=== PATIENT | female | born 1955 | race Caucasian/White ===

== ENCOUNTER → 2020-08-10 14:10 | Outpatient (CLI) | payer MEDICARE, SELFPAY ==
[2020-08-10 14:19] LABS: Microscopic, Urine URINE MICROSCOPIC (MICROSCOPIC)
[2020-08-10 15:54] LABS: Appearance,Urine CLEAR (Clear); Bilirubin,Urine Negative (Negative); Blood, Urine Negative (Negative); Color,Urine YELLOW (Yellow); Glucose,Urine (UA) 3+ (Negative); Ketones,Urine Negative (Negative); Leukocyte Esterase,Urine Negative (Negative); Nitrate,Urine Negative (Negative); PH,Urine 5.5 (5.0-8.5); Protein,Urine TRACE (Negative); Specific Gravity, Urine 1.025 (1.005-1.030); Urobilinogen,Urine 0.2 EU/dl (0.2)
[2020-08-10 16:00] LABS: Amorphous Sediment,Urine Trace /lpf; RBC,Urine Occasional #/hpf (0-3)
[2020-08-10 16:05] LABS: Creatinine,Urine Random 69 mg/dL (Not Estab.)
[2020-08-10 16:58] LABS: Albumin Level 4.9 g/dl (3.5-5.0); Anion Gap 15.1 mEq/L (5-15); Blood Urea Nitrogen 28 mg/dl (7-17); Calcium 10.1 mg/dl (8.4-10.2); Carbon Dioxide 23 mmol/L (22.0-30.0); Chloride 104 mmol/L (98-107); Estimated Glomerular Filt Rate 38 ml/min (>60); GFR (African American) 45 ML/MIN (>60); Glucose 223 mg/dl (74-100); Phosphorous 3.4 mg/dl (2.5-4.5); Potassium 4.1 mmoL/L (3.5-5.1); Sodium 138 mmol/L (136-145)
== END ==
PROVIDERS: Visit Provider Nurse Practitioner
DX: N18.30 Chronic kidney disease, stage 3 unspecified (principal)
CPT/HCPCS: 36415; 80069; 81001; 82570; 84155

== ENCOUNTER 2020-10-18 08:34 | Observation (INO) | payer MEDICARE, SELFPAY ==
[2020-10-18] VITALS (9 sets, daily range): BP systolic 140–185; BP diastolic 66–109; PULSE 82–112; RESP 18–20; TEMP 36.8–37.5; O2SAT 95–100; BMI 31.6
--- NOTE | 2020-10-18 08:47 | HMH.EDLOEX ---
ED Disposition Clinical Impression: Diabetic foot infection Disposition: Admitted As Inpatient Condition on Discharge: Good Referrals: Shivani Nieves APRN [Primary Care Provider] - Time of Disposition: 11:01 - Critical Care Critical Care Time: No Attestation: On 10/18/20, the high probability of a clinically significant, sudden or life threatening deterioration of the following system(s) required my full and direct attention, intervention and personal management. The time I documented below is in addition to time spent performing reported procedures but includes the following listed in this critical care notation. Medical Decision Making - Medical Records Medical records reviewed: Yes: I reviewed the patient's medical records. - Daniel Inquiry Pt receiving controlled substance: No Vital Signs: 10/18/20 08:36 10/18/20 09:48 10/18/20 10:26 Temperature 98.3 F Temperature Source Oral Pulse Rate [Right Brachial] 112 H 96 H 95 H Respiratory Rate 20 Blood Pressure [Right Arm] 170/78 H 183/66 H 182/73 H Blood Pressure Mean [Right Arm] 108 105 109 Blood Pressure Source [Right Arm] Automatic Cuff Automatic Cuff Automatic Cuff Blood Pressure Position [Right Arm] Sitting Sitting Sitting 02 Sat by Pulse Oximetry 96 98 100 Oxygen Delivery Method Room Air Room Air Room Air - Lab Data Lab Results 10/18/20 09:48: WBC 9.9, RBC 5.19, Hgb 13.8, Hct 42.9, MCV 82.7, MCH 26.6 L, MCHC 32.2, RDW 14.7, Plt Count 269, MPV 7.2 L, Neut % (Auto) 83.6 H, Lymph % (Auto) 9.4 L, [place] % (Auto) 6.2, Eos % (Auto) 0.3, Baso % (Auto) 0.5, Neut # (Auto) 8.2 H, Lymph # (Auto) 0.9, [place] # (Auto) 0.6, Eos # (Auto) 0.0, Baso # (Auto) 0.1 10/18/20 09:48: Sodium 138, Potassium 4.3, Chloride 101, Carbon Dioxide 26, Anion Gap 15.3 H, BUN 25 H, Creatinine 1.30 H, Estimated Creat Clear 54, Estimated GFR 41 L, Est GFR ( Amer) 49 L, Glucose 267 H, Calcium 10.4 H, Total Bilirubin 0.6, AST 25, ALT 17, Alkaline Phosphatase 207 H, Total Protein 9.0 H, Albumin 4.8, Globulin 4.2 H, Albumin/Globulin Ratio 1.1 10/18/20 09:48: Uric Acid 6.7 H Result diagrams: 10/18/20 09:48 02 09:48 Orders (Tests/Meds): ORDERS Category Date Time Status Covid-19 Nasal PCR ([facility]) Routine Lab 10/18/20 09:26 Received Lactic Acid Stat Lab 10/18/20 09:48 Received Blood Culture Stat Micro 10/18/20 09:48 Received Medical Decision Narrative: 65yo F with history of poorly controlled diabetes evaluated for right foot and ankle pain. Differential diagnosis includes was not limited to: Musculoskeletal injury, gout, pseudogout, joint infection, diabetic foot infection, DVT, vascular compromise. CBC, CMP, blood cultures, uric acid will be collected. Ankle x-ray being completed at this time. At this time, most likely etiology would be infection secondary to the skin breakdown the patient's heel. This is complicated by her diabetes. With the patient already being on p.o. antibiotics outpatient, this would be a failure of outpatient management as I suspect the patient will need to be admitted. Furthermore, the patient is unable to bear any weight whatsoever and lives alone. This puts her at a greater risk for further injury. CBC, CMP are unremarkable except for glucose of 267. Uric acid is mildly elevated at 6.7. Given the patient's recent hospitalization, her diabetes, her foot exam and her failed outpatient management, the patient has been admitted this time. Dr. Cueva has graciously excepted care of the patient this time. We will start the patient on vancomycin and cefepime for MRSA and Pseudomonas. Lower Extremity Injury HPI - General Stated Complaint: right ankle pain, no accident Time Seen by Provider: 10/18/20 08:48 Mode of Arrival: Wheelchair Source of Information: Patient Limitations: No Limitations - History of Present Illness HPI Narrative: 65yo F with past medical history significant for poorly controlled diabetes, CKD, CAD presents t
--- NOTE | 2020-10-18 09:13 | XR_ITS ---
PROCEDURE: XR ANKLE RT 2V CLINICAL INDICATION: pain Right ankle pain and swelling COMPARISON: No exams were available for comparison FINDINGS: No fracture or dislocation. No lytic or blastic change. The joint space is well preserved. There is mild soft tissue swelling at the medial malleolar region. No soft tissue gas or radiopaque foreign body IMPRESSION: Soft tissue swelling otherwise negative Dictated by: Nir Smith MD 10/18/2020 09:42 Nir Smith MD in [place] 10/18/2020 09:42
[2020-10-18 10:20] LABS: Basophils # 0.1 K/mm3 (0-0.2); Basophils % 0.5 % (0.1-2.0); Eosinophils % 0.3 % (0.1-12.0); Hematocrit 42.9 % (37.0-47.0); Hemoglobin 13.8 g/dL (12.2-16.2); Lymphocytes # 0.9 K/mm3 (0.7-4.5); Lymphocytes % 9.4 % (10-50); Mean Corpuscular HGB Conc 32.2 g/dL (31.8-35.4); Mean Corpuscular Hemoglobin 26.6 pg (27.0-31.2); Mean Corpuscular Volume 82.7 fl (81-99); Mean Platelet Volume 7.2 fl (7.4-10.4); Monocytes # 0.6 K/mm3 (0.1-1.0); Monocytes % 6.2 % (1.7-9.3); Neutrophils # 8.2 K/mm3 (1.8-7.8); Neutrophils % 83.6 % (37.0-80.0); Platelet Count 269 K/mm3 (142-424); Red Blood Count 5.19 M/mm3 (4.20-5.40); Red Cell Distribution Width 14.7 % (11.5-17.5); White Blood Count 9.9 K/mm3 (4.8-10.8)
[2020-10-18 10:25] LABS: Alanine Aminotransferase 17 U/L (12-78); Albumin Level 4.8 g/dl (3.5-5.0); Albumin/Globulin Ratio 1.1 (1.1-1.8); Alkaline Phosphatase 207 U/L (38-126); Anion Gap 15.3 mEq/L (5-15); Aspartate Amino Transferase 25 U/L (14-36); Bilirubin,Total 0.6 mg/dl (0.2-1.3); Blood Urea Nitrogen 25 mg/dl (7-17); Calcium 10.4 mg/dl (8.4-10.2); Carbon Dioxide 26 mmol/L (22.0-30.0); Chloride 101 mmol/L (98-107); Creatinine Clearance Estimated 54 mL/min (50-200); Estimated Glomerular Filt Rate 41 ml/min (>60); GFR (African American) 49 ML/MIN (>60); Globulin 4.2 g/dL (1.3-3.2); Glucose 267 mg/dl (74-100); Potassium 4.3 mmoL/L (3.5-5.1); Sodium 138 mmol/L (136-145)
[2020-10-18 10:26] LABS: Uric Acid 6.7 mg/dl (2.5-6.2)
--- NOTE | 2020-10-18 10:39 | PC.NURSE ---
calling dr zuñiga who is on for service
--- NOTE | 2020-10-18 10:43 | PC.NURSE ---
FARNAZ TRAN speaking with Dr chand
--- NOTE | 2020-10-18 10:54 | PC.NURSE ---
DR VALIENTE AGREED TO ADMISSION
[2020-10-18 10:59] LABS: Lactic Acid 0.9 mmol/L (0.7-2.1)
--- NOTE | 2020-10-18 11:16 | P.CONPHA_ITS ---
- Pharmacy Consult Date: 10/18/20 Time: 11:16 Referring provider: DR. CORCORAN Reason for Consult:: VANCOMYCIN DOSING Allergies and ADEs:: Allergies Allergy/AdvReac Type Severity Reaction Status Date / Time No Known Allergies Allergy Verified 10/18/20 09:03 Home Medications:: Home Medications Medication Instructions Recorded Confirmed Type Clopidogrel Bisulfate [Clopidogrel 75 mg PO DAILY 10/18/20 10/18/20 History 75mg Tab] Empagliflozin [Jardiance] 10 mg PO DAILY 10/18/20 10/18/20 History Insulin Detemir [Levemir 100 units SQ NEEDED PRN 10/18/20 10/18/20 History 100units/mL 3mL flexpen] Insulin Lispro [Insulin Lispro 100 unit SQ NEEDED PRN 10/18/20 10/18/20 History Kwikpen U-100] Losartan Potassium [Cozaar 50mg 50 mg PO DAILY 10/18/20 10/18/20 History Tablets] Metoprolol Succinate [Metoprolol 25 mg PO DAILY 10/18/20 10/18/20 History Succinate 25mg Tablet*] Rosuvastatin Calcium 10 mg PO DAILY 10/18/20 10/18/20 History Sertraline HCl [Zoloft] 100 mg PO DAILY 10/18/20 10/18/20 History Topiramate 100 mg PO DAILY 10/18/20 10/18/20 History cloNIDine HCL [cloNIDine 0.2mg 0.2 mg PO DAILY 10/18/20 10/18/20 History Tablet] Height: 1.6 m Weight: 81.193 kg Laboratory Results:: Laboratory Results - last 24 hr 10/18/20 09:48: WBC 9.9, RBC 5.19, Hgb 13.8, Hct 42.9, MCV 82.7, MCH 26.6 L, MCHC 32.2, RDW 14.7, Plt Count 269, MPV 7.2 L, Neut % (Auto) 83.6 H, Lymph % (Auto) 9.4 L, [place] % (Auto) 6.2, Eos % (Auto) 0.3, Baso % (Auto) 0.5, Neut # (Auto) 8.2 H, Lymph # (Auto) 0.9, [place] # (Auto) 0.6, Eos # (Auto) 0.0, Baso # (Auto) 0.1 10/18/20 09:48: Sodium 138, Potassium 4.3, Chloride 101, Carbon Dioxide 26, Anion Gap 15.3 H, BUN 25 H, Creatinine 1.30 H, Estimated Creat Clear 54, Estimated GFR 41 L, Est GFR ( Amer) 49 L, Glucose 267 H, Calcium 10.4 H, Total Bilirubin 0.6, AST 25, ALT 17, Alkaline Phosphatase 207 H, Total Protein 9.0 H, Albumin 4.8, Globulin 4.2 H, Albumin/Globulin Ratio 1.1 10/18/20 09:48: Uric Acid 6.7 H 10/18/20 09:48: Lactate 0.9 Medical History: Reports:: Atherosclerotic Heart Disease, Diabetes Mellitus Type 2, Renal Disease Assessment and Plan - Assessment and plan all Dx Assessment and Plan for all problems:: Age: 65 yo Serum creatinine: 1.3 mg/dL Height: 63.0 Inches Weight (kg): 81.2 Assessment: IBW (kg): 52.40 Dosing wt(kg): 81.2 Estimated Creatinine clearance (ml/min): 34.7 CRCL method: Cockcroft and Gault using ibw(default). Drug selected: Vancomycin Loading dose (mg): 0 Vd (liters): 65.0 (factor used: 0.8 L/kg) Ney (hr-1): 0.033 Half life (hrs): 21.00 Recommended dose: 1250 mg Interval: 24 hrs Infusion time (hrs): 2.0 Predicted peak (mcg/mL): 34.0 Predicted trough (mcg/mL): 16.45 Total body weight is being used for vancomycin dosing. Recommendations: Recommend starting with Vancomycin 1500 mg x1 dose, then give Vancomycin 1250 mg q 24 hrs with an expected Cpeak of 34.0 mcg/ml and an expected Ctrough of 16.45 mcg/ml
--- NOTE | 2020-10-18 11:41 | PC.NURSE ---
nasal swab will be approx 92 mins
--- NOTE | 2020-10-18 11:51 | HMH.PHAINT ---
COMPLETED HOME MEDICATION LIST USING LIST FROM [facility] IN [facility]
--- NOTE | 2020-10-18 12:01 | HMH.HP ---
*Admission Date: 10/18/20 <Faby Robins - 10/18/20 12:21> *Chief complaint: foot pain <Faby Robins 10/18/20 12:21> *History of present illness: Ms. 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 She was recently admitted at [facility] last week for urinary tract infection with sepsis and acute kidney injury. Her glucose was over 600. She states she was started on IV antibiotics and was discharged from the hospital on Friday with prescriptions for Augmentin and doxycycline. Her white blood cell count had improved by the time of discharge and she was feeling much better. She states on Friday she began having some pain in her right ankle. By Friday there was pain and swelling. This morning she woke up and there was erythema along the ankle and the top of the foot. She states it was hot and very painful and she was unable to walk and had to crawl around her house to get to the bathroom. She therefore presented to the emergency room. Her only other complaint is of some nausea. She was evaluated in the emergency room and felt to have a cellulitis. She was started on vancomycin and cefepime to cover for MRSA and Pseudomonas. Of note her uric acid was elevated at 6.7. Podiatry was also consulted. <Faby Robins 10/18/20 16:26> [facility] History I have reviewed the patient's past medical history: Yes <Faby Robins 10/18/20 12:21> Medical History: Reports:: Atherosclerotic Heart Disease, Depression, Diabetes Mellitus Type 2, Hypertension, Renal Disease <Faby Robins 10/18/20 16:26> *Have you ever received a pneumonia vaccine?: No <Faby Robins 10/18/20 12:21> *Have you received a flu vaccine this season?: No <Faby Robins 10/18/20 12:21> Other Surgeries: Yes: Coronary Stent, Hysterectomy-Total, Other (left arm surgery) <Faby Robins 10/18/20 16:26> - *Social History Smoking Status: Never smoker <Faby Robins 10/18/20 12:21> *Occupational Status:: employed <Faby Robins 10/18/20 16:26> *Travel in the last 8 weeks: None <Faby Robins 10/18/20 16:26> Family Hx:: Coronary Artery Disease, Diabetes, Hypertension, Other (MS, glaucoma) <Faby Robins 10/18/20 16:26> Review of Systems - Constitutional Denies fever(s), Denies weakness <Faby Robins 10/18/20 16:26> - Eyes Denies blurry vision, Denies double vision <Faby Robins 10/18/20 16:26> - ENT Reports sore throat, Denies nasal congestion <Faby Robins 10/18/20 16:26> - *Cardiovascular Denies chest pain, Denies shortness of breath <Faby Robins 10/18/20 16:26> - *Respiratory Denies cough, Denies shortness of breath <Faby Robins 10/18/20 16:26> - *Gastrointestinal Reports nausea, Denies abdominal pain, Denies loose stools, Denies vomiting <Faby Robins 10/18/20 16:26> - *Genitourinary Denies difficulty urinating, Denies painful urination <aFby Robins 10/18/20 16:26> - *Musculoskeletal Reports joint pain (right ankle) <Faby Robins 10/18/20 16:26> - *Neurologic Reports abnormal walking, Denies headache(s), Denies dizziness, Denies weakness <Faby Robins 10/18/20 16:26> Meds Home Medications Medication Instructions Recorded Confirmed Type Clopidogrel Bisulfate [Clopidogrel 75 mg PO DAILY 10/18/20 10/18/20 History 75mg Tab] Empagliflozin [Jardiance] 10 mg PO DAILY 10/18/20 10/18/20 History Insulin Detemir [Levemir 50 units SQ HS 10/18/20 10/18/20 History 100units/mL 3mL flexpen] Insulin Lispro [Insulin Lispro 12 unit SQ TIDWM 10/18/20 10/18/20 History Kwikpen U-100] Losartan Potassium [Cozaar 50mg 50 mg PO DAILY 10/18/20 10/18/20 History Tablets] Metoprolol Tartrate [Lopressor 12.5 mg PO BID 10/18/20 10/18/20 History 25mg tablet] Rosuvastatin Calcium 10 mg PO DAILY 10/18/20 10/18/20 History Semaglutide [Ozempic] 0.5 mg
--- NOTE | 2020-10-18 12:04 | HMH.PHAVTE ---
[facility] Pharmacy VTE Monitoring - Patient Demographics Admission date: 10/18/20 Report Date: 10/18/20 Time: 12:04 Allergies/Adverse Reactions: Patient Allergies No Known Allergies Allergy (Verified 10/18/20 09:03) Height: 1.6 m Weight: 81.193 kg Patient Problems: Current Active Problems Diabetic foot infection (Acute) - VTE Risk Labs: VTE Related Lab Results Hgb 13.8 g/dL (12.2-16.2) 10/18/20 09:48 Hct 42.9 % (37.0-47.0) 10/18/20 09:48 Plt Count 269 K/mm3 (142-424) 10/18/20 09:48 BUN 25 mg/dl (7-17) H 10/18/20 09:48 Creatinine 1.30 mg/dl (0.52-1.04) H 10/18/20 09:48 Estimated Creat Clear 54 mL/min (50-200) 10/18/20 09:48 Clinical Trial Participant: No - Prophylaxis VTE Prophylaxis Ordered?: Yes Types of VTE Prophylaxis: IPCS Knee High, Pharmacological Pharmacologic Type: Heparin
--- NOTE | 2020-10-18 13:31 | PC.NURSE ---
report called to [facility]
--- NOTE | 2020-10-18 13:41 | PC.NURSE ---
patient came from er by wheelchair
--- NOTE | 2020-10-18 15:06 | PC.WOUNDNOTE ---
Wound Location: Length: Width: Depth: Undermining Y/N: Tunneling cm: Granulation %: Slough/necrotic tissue %: Inflammation/swelling Y/N: Pain and/or tenderness Y/N: Exudate: Serosanguinous Sanguinous Serosanguinous Seropurulent Purulent Color: Clear Kandy Cloudy/milky [place] Red Green Yellow Brown Avelar Blue Consistency: Thick Thin Amount: None Scant Small Moderate Large Odor Y/N: RIGHT HEEL
[2020-10-18 16:59] LABS: POC Glucose,Bedside 188 (70-110)
--- NOTE | 2020-10-18 20:24 | HMH.ORTHOCON ---
*Admission Date: 10/18/20 <Agatha Kelsey - 10/18/20 20:41> *Reason for consult:: Diabetic foot wound <Agatha Kelsey - 10/18/20 20:41> *History of present illness: 65-year-old female Ms. Hernandez was resting in bed when we rounded she was newly admitted today for diabetic foot wound. The patient is not a regular patient of ours, in fact she states she does not routinely see any podiatry for her diabetic needs. I discussed with the patient our services and that once established service she can have her feet examined and nails trimmed every 3 months and she also would qualify for a pair of new diabetic shoes every year. Patient seemed impressed with the services and said she would think about it. The area that the patient presents with those on her right lateral heel that appears to be very dry skin on the heel , the skin has cracked and developed a large fissure. It looks like the patient had a couple areas that tried to crack open. But the one she stated that was giving her pain was on the lateral side. The fissure did not have any drainage when compressed. Did not probe very deeply at all. The midfoot and ankles medial and lateral malleolus areas was the place that she complained most of pain was coming from. She does have some erythema and edema to the foot and ankle but does not extend past the ankle at all. I do not believe the fissure is the source of the infection. The patient did have good palpable pedal pulses both DP and PT bilaterally. So I will clean and debride the heel and put a Ioplex dressing in place. <Agatha Kelsey - 10/18/20 21:32> [facility] History I have reviewed the patient's past medical history: Yes <Agatha Kelsey - 10/18/20 20:41> Medical History: Reports:: Atherosclerotic Heart Disease, Coronary Artery Disease, Depression, Diabetes Mellitus Type 2, Hyperlipidemia, Hypertension, Renal Disease Denies:: Cancer, Diabetes Mellitus Type 1, MRSA <Agatha Kelsey - 10/18/20 20:41> *Have you ever received a pneumonia vaccine?: Yes <RamónmaryamAgatha barahona Leticia 10/18/20 20:41> *Have you received a flu vaccine this season?: Yes <LowAgatha L 10/18/20 20:41> Other Surgeries: Yes: Cholecystectomy, Coronary Stent, Hysterectomy-Total, Tubal Ligation, Other (left arm surgery) <Agatha Kelsey 10/18/20 20:41> Amputation: No <Agatha Kelsey 10/18/20 20:41> - *Social History Smoking Status: Never smoker <Agatha Kelsey 10/18/20 20:41> Alcohol Intake: never <Agatha Kelsey 10/18/20 20:41> *Occupational Status:: employed <Agatha Kelsey 10/18/20 20:41> Housing: house <Agatha Kelsey 10/18/20 20:41> Household Members: children <Agatha Kelsey 10/18/20 20:41> *Travel in the last 8 weeks: None <Agatha Kelsey 10/18/20 20:41> - Psychiatric History Pschychiatric History:: Reports:: Depression <Agatha Kelsey 10/18/20 20:41> Family Hx:: Coronary Artery Disease, Diabetes, Hypertension, Other (MS, glaucoma) <Agatha Kelsey 10/18/20 20:41> Review of Systems - Constitutional Reports fever(s), Denies anorexia <Agatha Kelsey 10/18/20 21:32> Comments: Patient's temp was 99.5 today. Denies any N/V/D. <Agatha Kelsey 10/18/20 20:41> - Eyes Denies change in vision <Agatha Kelsey 10/18/20 21:32> - ENT Denies dizziness, Denies difficulty swallowing <Agatha Kelsey 10/18/20 21:32> - *Cardiovascular Reports leg swelling (Mild Right foot and ankle edema; it does not extend any up the leg. ), Denies chest pain <Agatha Kelsey 10/18/20 21:32> - *Respiratory Denies shortness of breath <Agatha Kelsey 10/18/20 21:32> - *Gastrointestinal Denies abdominal pain <Agatha Kelsey 10/18/20 21:32> - *Musculoskeletal Denies abnormal walking <Agatha Kelsey 10/18/20 21:32> - Integumentary/Breasts Reports dry skin, Reports lesions <Agatha Kelsey 10/18/20 21:32> Comments: Patient has dry skin noted to feet and on her Right heel later
[2020-10-18 21:08] LABS: POC Glucose,Bedside 308 (70-110)
[2020-10-19 03:36] VITALS: BP 113/53; PULSE 90; RESP 17; TEMP 36.6; O2SAT 96
[2020-10-19 05:00] VITALS: BMI 32.0
--- NOTE | 2020-10-19 05:13 | PC.NURSE ---
Pt is A&Ox4. Pt continues on RA, lung sounds CTA, no cough noted. Active bowel sounds in all 4 quads, no BM noted thus far this shift. Dressing on rt foot remains CDI. Pt states her foot feels better now. Pt has required no PRN pain meds this shift. No other acute changes or complaints at this time.
[2020-10-19 06:40] LABS: POC Glucose,Bedside 230 (70-110)
[2020-10-19 06:59] LABS: Chloride 104 mmol/L (98-107); Sodium 135 mmol/L (136-145)
[2020-10-19 07:00] LABS: Potassium 4.3 mmoL/L (3.5-5.1)
[2020-10-19 07:02] LABS: Anion Gap 9.3 mEq/L (5-15); Basophils # 0.1 K/mm3 (0-0.2); Basophils % 0.7 % (0.1-2.0); Blood Urea Nitrogen 22 mg/dl (7-17); Carbon Dioxide 26 mmol/L (22.0-30.0); Creatinine Clearance Estimated 58 mL/min (50-200); Eosinophils % 0.2 % (0.1-12.0); Estimated Glomerular Filt Rate 45 ml/min (>60); GFR (African American) 54 ML/MIN (>60); Lymphocytes # 1.1 K/mm3 (0.7-4.5); Lymphocytes % 13.3 % (10-50); Mean Corpuscular HGB Conc 31.9 g/dL (31.8-35.4); Mean Corpuscular Hemoglobin 26.5 pg (27.0-31.2); Mean Corpuscular Volume 83.1 fl (81-99); Mean Platelet Volume 7.6 fl (7.4-10.4); Monocytes # 0.6 K/mm3 (0.1-1.0); Monocytes % 7.3 % (1.7-9.3); Neutrophils # 6.3 K/mm3 (1.8-7.8); Neutrophils % 78.6 % (37.0-80.0); Platelet Count 216 K/mm3 (142-424); Red Blood Count 4.57 M/mm3 (4.20-5.40); Red Cell Distribution Width 14.7 % (11.5-17.5)
[2020-10-19 07:03] LABS: Calcium 9.8 mg/dl (8.4-10.2); Glucose 274 mg/dl (74-100)
[2020-10-19 07:25] LABS: Hemoglobin 12.1 g/dL (12.2-16.2)
[2020-10-19 08:00] VITALS: BP 129/59; PULSE 80; RESP 16; TEMP 36.6; O2SAT 96
--- NOTE | 2020-10-19 08:44 | HMH.ACPN2 ---
<Faby Robins - Last Filed: 10/19/20 08:44> Internal Medicine - PN: Subj *Date: 10/19/20 *Time: 08:44 Interval history: Patient states her foot pain is a little bit better today. She is able to move it more than she could yesterday. 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 She rested better last night and was able to eat this am. Exam Vital signs and Labs for Last 24 Hours: Temp Pulse Resp BP Pulse Ox 97.9 F 80 16 129/59 L 96 10/19/20 08:00 10/19/20 08:00 10/19/20 08:00 10/19/20 08:00 10/19/20 08:00 Laboratory Results - last 24 hr 10/18/20 09:48: WBC 9.9, RBC 5.19, Hgb 13.8, Hct 42.9, MCV 82.7, MCH 26.6 L, MCHC 32.2, RDW 14.7, Plt Count 269, MPV 7.2 L, Neut % (Auto) 83.6 H, Lymph % (Auto) 9.4 L, [place] % (Auto) 6.2, Eos % (Auto) 0.3, Baso % (Auto) 0.5, Neut # (Auto) 8.2 H, Lymph # (Auto) 0.9, [place] # (Auto) 0.6, Eos # (Auto) 0.0, Baso # (Auto) 0.1 10/18/20 09:48: Sodium 138, Potassium 4.3, Chloride 101, Carbon Dioxide 26, Anion Gap 15.3 H, BUN 25 H, Creatinine 1.30 H, Estimated Creat Clear 54, Estimated GFR 41 L, Est GFR ( Amer) 49 L, Glucose 267 H, Calcium 10.4 H, Total Bilirubin 0.6, AST 25, ALT 17, Alkaline Phosphatase 207 H, Total Protein 9.0 H, Albumin 4.8, Globulin 4.2 H, Albumin/Globulin Ratio 1.1 10/18/20 09:48: Uric Acid 6.7 H 10/18/20 09:48: Lactate 0.9 10/18/20 16:47: POC Glucose 188 H 10/18/20 20:56: POC Glucose 308 H* 10/19/20 05:30: WBC 8.0, RBC 4.57, Hgb 12.1 L D, Hct 38.0, MCV 83.1, MCH 26.5 L, MCHC 31.9, RDW 14.7, Plt Count 216, MPV 7.6, Neut % (Auto) 78.6, Lymph % (Auto) 13.3, [place] % (Auto) 7.3, Eos % (Auto) 0.2, Baso % (Auto) 0.7, Neut # (Auto) 6.3, Lymph # (Auto) 1.1, [place] # (Auto) 0.6, Eos # (Auto) 0.0, Baso # (Auto) 0.1 10/19/20 05:30: Sodium 135 L, Potassium 4.3, Chloride 104, Carbon Dioxide 26, Anion Gap 9.3, BUN 22 H, Creatinine 1.20 H, Estimated Creat Clear 58, Estimated GFR 45 L, Est GFR ( Amer) 54 L, Glucose 274 H, Calcium 9.8 10/19/20 06:28: POC Glucose 230 H I & O for Last 24 hours: Intake & Output 10/16/20 10/17/20 10/18/20 10/19/20 11:59 11:59 11:59 11:59 Intake Total 840 / 840 Balance 840 / 840 Weight 179 lb 178 lb 9.191 oz Microbiology Reports for the Last 24 Hours: Microbiology 10/18/20 09:26 Nasopharyngeal Coronavirus COVID-19 PCR - Final - Constitutional no acute distress - *Routine Respiratory Exam Present: CTA bilaterally - *Routine Cardiovascular Exam Present: RRR - *Routine Abdominal Exam Present: soft, normoactive bowel sounds. 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 mobility - *Routine Neurological Exam Present: alert, oriented X3 Assessment and Plan (1) Diabetic foot infection Status: Acute Category: Medical Code(s): E11.628 - Type 2 diabetes mellitus with other skin complications; L08.9 - Local infection of the skin and subcutaneous tissue, unspecified (2) Elevated blood uric acid level Status: Acute Category: Medical Code(s): E79.0 - Hyperuricemia without signs of inflammatory arthritis and tophaceous disease (3) Type 2 diabetes mellitus Status: Chronic Category: Medical Code(s): E11.9 - Type 2 diabetes mellitus without complications (4) Chronic kidney disease (CKD) Status: Chronic Category: Medical Code(s): N18.9 - Chronic kidney disease, unspecified (5) Hypertension Status: Chronic Category: Medical Code(s): I10 - Essential (primary) hypertension (6) Coronary artery disease Status: Chronic Category: Medical Code(s): I25.10 - Atherosclerotic heart disease of [place] coronary artery without angina pectoris (7) Keratosis Start date: 10/18/20 Start time: 16:00 Status: Acute Category: Medical Code(s): L57.0 - Actinic keratosis (8) Lower extremity edema St
--- NOTE | 2020-10-19 09:55 | HMH.ORTHPN ---
Subjective Date: 10/19/20 <Agatha Kelsey - 10/19/20 10:09> Time: 09:55 <Agatha Kelsey - 10/19/20 10:09> Principal diagnosis: Diabetic foot wound <Agatha Kelsey - 10/19/20 10:09> Interval history: Patient resting sitting up in her bed this morning states her pain is much better. More tolerable for us to touch. Mobility is much better edema and erythema has also improved since yesterday. Patient was started on steroids and colchicine for gout and it seems to be helping since symptoms are starting to reside. <Agatha Kelsey - 10/19/20 10:09> PN: Obj Ex Vital signs: Temp Pulse Resp BP Pulse Ox 97.9 F 80 16 129/59 L 96 10/19/20 08:00 10/19/20 08:00 10/19/20 08:00 10/19/20 08:00 10/19/20 08:00 <JellyMacy - 10/19/20 10:37> Temp Pulse Resp BP Pulse Ox 97.9 F 80 16 129/59 L 96 10/19/20 08:00 10/19/20 08:00 10/19/20 08:00 10/19/20 08:00 10/19/20 08:00 <Agatha Kelsey 10/19/20 10:09> - Constitutional no acute distress <Agatha Kelsey 10/19/20 10:09> - Routine HEENT Exam Head: Present: normocephalic <Agatha Kelsey 10/19/20 10:09> Eye: Present: PERRL <Agatha Kelsey 10/19/20 10:09> ENT: Present: mucous membranes moist <Agatha Kelsey 10/19/20 10:09> - Routine Neck Exam Present: trachea midline <Agatha Kelsey 10/19/20 10:09> - Routine Respiratory Exam Absent: respiratory distress <Agatha Kelsey 10/19/20 10:09> - Routine Cardiovascular Exam Present: RRR <Agatha Kelsey 10/19/20 10:09> - Routine Abdominal Exam Present: soft <Agatha Kelsey 10/19/20 10:09> - Routine Extremities Exam Present: edema, pulses intact, normal capillary refill. Absent: calf tenderness <Agatha Kelsey 10/19/20 10:09> - Detailed Lower Extremity Exam Bottom foot image: 1 - Right lateral heel fissure noted measuring 2.0 x 0.1 x 0.1 cm. No drainage noted when compressed. 100% granular wound bed. We did not do bride the area today because it appears to be more closed together and intact. Site redressed with Ioplex, dry sterile gauze and replaced her Gio wrap. <Agatha Kelsey 10/19/20 10:09> Comments: Tenderness, edema and erythema has improved since yesterday. Denies pain with range of motion. Still reports some tenderness to palpation to the top of the foot as well as medial and lateral malleolus. <Agatha Kelsey 10/19/20 10:09> - Routine Back/Spine/Pelvis Exam Back/Spine: Present: full ROM <Agatha Kelsey 10/19/20 10:09> - Routine Skin Exam Present: erythema, dry, warm, wounds <Agatha Kelsey 10/19/20 10:09> Comments: Right lateral ankle fissure noted no drainage when compressed. No acute signs of infection. <Agatha Kelsey 10/19/20 10:09> - Routine Neurological Exam Present: oriented X3, vision grossly intact, hearing grossly intact <Agatha Kelsey 10/19/20 10:09> - Routine Psychiatric Exam Present: normal affect, cooperative <Agatha Kelsey 10/19/20 10:09> Progress Note: A&P (1) Diabetic foot infection Status: Acute (2) Elevated blood uric acid level Status: Acute (3) Type 2 diabetes mellitus Status: Chronic (4) Chronic kidney disease (CKD) Status: Chronic (5) Hypertension Status: Chronic (6) Coronary artery disease Status: Chronic (7) Keratosis Status: Acute (8) Lower extremity edema Status: Acute (9) Fissure in skin of foot Status: Acute <Agatha Kelsey - 10/19/20 09:55> (1) Diabetic foot infection Status: Acute (2) Elevated blood uric acid level Status: Acute (3) Type 2 diabetes mellitus Status: Chronic (4) Chronic kidney disease (CKD) Status: Chronic (5) Hypertension Status: Chronic (6) Coronary artery disease Status: Chronic (7) Keratosis Status: Acute (8) Lower extremity edema Status: Acute (9
[2020-10-19 11:21] LABS: POC Glucose,Bedside 169 (70-110)
[2020-10-19 16:00] VITALS: BP 129/61; PULSE 69; RESP 18; TEMP 36.8; O2SAT 96
[2020-10-19 17:42] LABS: POC Glucose,Bedside 304 (70-110)
--- NOTE | 2020-10-19 18:34 | PC.NURSE ---
PT HAS HAD A GOOD DAY. HAS BEEN AMBULATING INDEPENDENTLY IN ROOM. PT HAS C/O PAIN TO FOOT ONCE THIS MORNING. PRN MED GIVEN WITH DESIRED EFFECT. RIGHT FOOT DRESSING IS CDI. VSS. WILL CONT. TO MONITOR.
[2020-10-19 19:38] VITALS: BP 139/70; PULSE 82; RESP 17; TEMP 37.2; O2SAT 96
[2020-10-19 20:05] VITALS: RESP 18
[2020-10-19 21:07] LABS: POC Glucose,Bedside 228 (70-110)
[2020-10-20 03:30] VITALS: BP 102/63; PULSE 72; RESP 18; TEMP 36.7; O2SAT 97
--- NOTE | 2020-10-20 05:13 | PC.NURSE ---
pt has had no issues this shift. states pain x1 and prn med given with relief. iv patent. alert and oriented. vss. dressing in place to right heel. call light in reach. will continue to monitor.
[2020-10-20 06:30] VITALS: BMI 31.8
[2020-10-20 07:05] LABS: POC Glucose,Bedside 210 (70-110)
[2020-10-20 08:00] VITALS: BP 106/68; PULSE 72; RESP 18; TEMP 36.9; O2SAT 97
--- NOTE | 2020-10-20 08:16 | HMH.ACPN2 ---
<Faby Robins - Last Filed: 10/20/20 08:16> Internal Medicine - PN: Subj *Date: 10/20/20 *Time: 08:16 Interval history: Patient states she is feeling a little bit better today. Her foot has less swelling and redness and she does have better range of motion. She still cannot put weight on the foot. She states she did not rest well last night and is tired this morning. She did eat her breakfast. Exam Vital signs and Labs for Last 24 Hours: Temp Pulse Resp BP Pulse Ox 98.0 F 72 18 102/63 L 97 10/20/20 03:30 10/20/20 03:30 10/20/20 03:30 10/20/20 03:30 10/20/20 03:30 Laboratory Results - last 24 hr 10/19/20 11:12: POC Glucose 169 H 10/19/20 17:33: POC Glucose 304 H* 10/19/20 20:49: POC Glucose 228 H 10/20/20 06:50: POC Glucose 210 H I & O for Last 24 hours: Intake & Output 10/17/20 10/18/20 10/19/20 10/20/20 11:59 11:59 11:59 11:59 Intake Total 840 / 840 1080 / 1080 Balance 840 / 840 1080 / 1080 Weight 179 lb 180 lb 12.465 oz 180 lb - Constitutional no acute distress - *Routine Respiratory Exam Present: CTA bilaterally - *Routine Cardiovascular Exam Present: RRR - *Routine Abdominal Exam Present: soft, normoactive bowel sounds. Absent: tenderness - *Routine Extremities Exam Absent: cyanosis, clubbing, edema - *Routine Skin Exam Comments: Right foot with much less edema and erythema. She still has some tenderness along the lateral malleolus and the dorsum of the foot - *Routine Neurological Exam Present: alert, oriented X3 Assessment and Plan (1) Diabetic foot infection Status: Acute Category: Medical Code(s): E11.628 - Type 2 diabetes mellitus with other skin complications; L08.9 - Local infection of the skin and subcutaneous tissue, unspecified (2) Elevated blood uric acid level Status: Acute Category: Medical Code(s): E79.0 - Hyperuricemia without signs of inflammatory arthritis and tophaceous disease (3) Type 2 diabetes mellitus Status: Chronic Category: Medical Code(s): E11.9 - Type 2 diabetes mellitus without complications (4) Chronic kidney disease (CKD) Status: Chronic Category: Medical Code(s): N18.9 - Chronic kidney disease, unspecified (5) Hypertension Status: Chronic Category: Medical Code(s): I10 - Essential (primary) hypertension (6) Coronary artery disease Status: Chronic Category: Medical Code(s): I25.10 - Atherosclerotic heart disease of [place] coronary artery without angina pectoris (7) Keratosis Start date: 10/18/20 Start time: 16:00 Status: Acute Category: Medical Code(s): L57.0 - Actinic keratosis (8) Lower extremity edema Start date: 10/18/20 Status: Acute Category: Medical Code(s): R60.0 - Localized edema (9) Fissure in skin of foot Start date: 10/18/20 Status: Acute Category: Medical Code(s): R23.4 - Changes in skin texture - Assessment and plan all Dx Assessment and Plan for all problems:: Patient is improving. We will keep her on colchicine daily. Podiatry to follow. Will discuss further care with Dr. Cueva. <Jasiel Cueva - Last Filed: 10/20/20 08:45> Internal Medicine - PN: Subj *Date: 10/20/20 *Time: 08:44 Exam Vital signs and Labs for Last 24 Hours: Temp Pulse Resp BP Pulse Ox 98.0 F 72 18 102/63 L 97 10/20/20 03:30 10/20/20 03:30 10/20/20 03:30 10/20/20 03:30 10/20/20 03:30 Laboratory Results - last 24 hr 10/19/20 11:12: POC Glucose 169 H 10/19/20 17:33: POC Glucose 304 H* 10/19/20 20:49: POC Glucose 228 H 10/20/20 06:50: POC Glucose 210 H I & O for Last 24 hours: Intake & Output 10/17/20 10/18/20 10/19/20 10/20/20 23:59 23:59 23:59 23:59 Intake Total 600 / 600 960 / 1080 360 / 360 Balance 600 / 600 960 / 1080 360 / 360 Weight 178 lb 9.191 oz 180 lb 12.465 oz 180 lb Assessment and Plan (1) Diabetic foot infection Status: Acute Category: Medical Code(s): E11.628 - Type 2 diabetes
--- NOTE | 2020-10-20 09:54 | SW/DCPLANNER ---
PATIENT DISCHARGING HOME TODAY AND WILL FOLLOW UP WITH HER OWN MD...SHE IS ALSO SUPPOSE TO FOLLOW UP WITH DR HOLT FOR TOENAILS TO BE CLIPPED EVERY THREE MONTHS... SHE HAS ALSO REQUESTED A WALKING SHOE AND THIS WILL BE PROVIDED BEFORE SHE DISCHARGES HOME TODAY... NO OTHER NEED AT THIS TIME....
--- NOTE | 2020-10-20 10:30 | PC.NURSE ---
WALKING BOOT SENT HOME WITH PT.
[2020-10-20 11:23] LABS: Vancomycin,Trough 9.1 ug/mL (5.0-10.0)
--- NOTE | 2020-10-20 12:01 | HMH.DCSUM ---
General - General Admission date:: 10/18/20 <Jasiel Cueva - 10/20/20 15:41> 10/18/20 <Faby Robins - 10/20/20 12:07> Discharge date: 10/20/20 <Faby Robins - 10/20/20 12:07> HPI HPI: Ms. 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 She was recently admitted at [facility] last week for urinary tract infection with sepsis and acute kidney injury. Her glucose was over 600. She states she was started on IV antibiotics and was discharged from the hospital on Friday with prescriptions for Augmentin and doxycycline. Her white blood cell count had improved by the time of discharge and she was feeling much better. She states on Friday she began having some pain in her right ankle. By Friday there was pain and swelling. This morning she woke up and there was erythema along the ankle and the top of the foot. She states it was hot and very painful and she was unable to walk and had to crawl around her house to get to the bathroom. She therefore presented to the emergency room. Her only other complaint is of some nausea. She was evaluated in the emergency room and felt to have a cellulitis. She was started on vancomycin and cefepime to cover for MRSA and Pseudomonas. Of note her uric acid was elevated at 6.7. Podiatry was also consulted. <Faby Robins - 10/20/20 12:07> Hospital Course Hospital Course: The patient's ankle x-ray showed soft tissue swelling but was otherwise negative. She was admitted and started on IV antibiotics for her cellulitis. Podiatry was consulted and saw the patient. They debrided her heels but did not feel that this was a source of infection. It was felt based on her symptoms that she may have gout, therefore she was given a 4 mg dose of IV dexamethasone and 0.6 mg of colchicine. By the next day, her foot was feeling a little bit better. There was less erythema and edema and she had better range of motion. She was given another dose of IV dexamethasone and colchicine was started daily. By 10/20/2020, her foot was much less swollen and erythematous, but she still had pain with weightbearing. It was felt her symptoms were due to gout rather than cellulitis. She was stable to be discharged home with a walking shoe as well as with colchicine daily and dexamethasone for 4 days. She will follow with her family doctor as well as with podiatry. <Faby Robins - 10/20/20 12:07> Objective Vital signs: Temp Pulse Resp BP Pulse Ox 98.4 F 72 18 106/68 L 97 10/20/20 08:00 10/20/20 08:00 10/20/20 08:00 10/20/20 08:00 10/20/20 08:00 <Jasiel Cueva - 10/20/20 15:41> Temp Pulse Resp BP Pulse Ox 98.4 F 72 18 106/68 L 97 10/20/20 08:00 10/20/20 08:00 10/20/20 08:00 10/20/20 08:00 10/20/20 08:00 <Faby Robins - 10/20/20 12:07> Narrative: - Constitutional no acute distress - *Routine HEENT Exam Head: Present: normocephalic Eye: Present: EOMI, PERRL ENT: Present: mucous membranes moist - *Routine Neck Exam Present: supple. Absent: lymphadenopathy - *Routine Respiratory Exam Present: CTA bilaterally - *Routine Cardiovascular Exam Present: RRR - *Routine Abdominal Exam Present: soft, normoactive bowel sounds. Absent: tenderness - *Routine Extremities Exam Present: edema (RLE around the ankle and dorsum of the foot, very tender to palpation). Absent: cyanosis, clubbing - *Routine Skin Exam Present: erythema (around the right ankle and dorsum of the foot) - *Routine Neurological Exam Present: alert, oriented X3 <Faby Robins - 10/20/20 12:07> Results Labs on day of discharge: Labs from last 24 hours 10/20/20 10/20/20 10/19/20 10:30 06:50 20:49 POC Glucose 210 H 228 H Vancomycin Trough 9.1 10/19/20 17:33 POC Glucose 304 H* Vancomyci
== END 2020-10-20 10:29 | disposition home or self-care (01) ==
LOC: ER 11:01 → 2ND 13:59
PROVIDERS: Admitting Provider Family Medicine; Emergency Provider Family Medicine; PCP Nurse Practitioner Family; Visit Provider Family Medicine
DX: E11.628 Type 2 diabetes mellitus with other skin complications (principal); Z79.4 Long term (current) use of insulin; E11.22 Type 2 diabetes mellitus with diabetic chronic kidney disease; N18.30 Chronic kidney disease, stage 3 unspecified; I12.9 Hypertensive chronic kidney disease with stage 1 through stage 4 chronic kidney disease, or unspecified chronic kidney disease; I25.10 Atherosclerotic heart disease of native coronary artery without angina pectoris; Z95.5 Presence of coronary angioplasty implant and graft; Z82.49 Family history of ischemic heart disease and other diseases of the circulatory system; Z79.899 Other long term (current) drug therapy; Z79.02 Long term (current) use of antithrombotics/antiplatelets; R23.4 Changes in skin texture; L98.8 Other specified disorders of the skin and subcutaneous tissue; R60.0 Localized edema; M10.9 Gout, unspecified
CPT/HCPCS: 36415; 73600; 80048; 80053; 80202; 82962; 83605; 84550; 85025; 87040; 96365; 96375; 99284; G0378; J0692; J3370; U0003

== ENCOUNTER → 2021-06-07 14:43 | Outpatient (CLI) | payer MEDICARE, SELFPAY | PROVIDERS: PCP Nurse Practitioner Family; Visit Provider Nurse Practitioner | DX: Z20.822 Contact with and (suspected) exposure to COVID-19 (principal) | CPT/HCPCS: C9803; U0003; U0005 ==

== ENCOUNTER 2021-08-12 15:36 | Emergency (ER) | payer MEDICARE, SELFPAY ==
[2021-08-12 15:50] VITALS: BP 195/85; PULSE 94; RESP 16; TEMP 36.8; O2SAT 96; BMI 32.2
--- NOTE | 2021-08-12 16:31 | HMH.EDGENADL ---
ED Disposition Clinical Impression: Abscess packing removal Disposition: Xfer Inpatient Rehab Fac Condition on Discharge: Good Additional Instructions: Continue incision care as previously instructed by your surgeon. Follow-up with surgeon as arranged. Referrals: Shivani Nieves APRN [Primary Care Provider] - - Critical Care Critical Care Time: No Attestation: On 08/12/21, the high probability of a clinically significant, sudden or life threatening deterioration of the following system(s) required my full and direct attention, intervention and personal management. The time I documented below is in addition to time spent performing reported procedures but includes the following listed in this critical care notation. Medical Decision Making - Daniel Inquiry Pt receiving controlled substance: No Vital Signs: 08/12/21 15:50 Temperature 98.2 F Temperature Source Oral Pulse Rate [Left Radial] 94 H Respiratory Rate 16 Blood Pressure [Right Arm] 195/85 H Blood Pressure Mean [Right Arm] 121 Blood Pressure Source [Right Arm] Automatic Cuff Blood Pressure Position [Right Arm] Sitting 02 Sat by Pulse Oximetry 96 Oxygen Delivery Method Room Air General Adult HPI - General Chief complaint: Recheck/Abnormal Lab/Rx Stated complaint: OP procedure 08/10 cant find wound packing Time Seen by Provider: 08/12/21 16:15 Mode of Arrival: Ambulatory Limitations: No Limitations Description of Symptoms (Recalled from ER Triage Doc. by RN): pt to ed per pvt car. pt states she had a mass removed from her left thigh at [facility] on 07/13. pt states she had a second procedure on friday to remove the rest of the mass d/t suspicion of malignancy. pt states wound care instructed her to remove 6 inches of her packing last night and the remainder of her packing today. pt states when she uncovered her dressing today she could not find her packing to remove. - History of Present Illness HPI narrative: Patient presents with possible retained packing in his surgical wound. 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. She initially had a surgical drain. On Friday, 2 days ago she saw her surgeon who was concerned there might be infection. She opened a portion of the incision and did not find any pus but packed it. She told the patient to pull out 6 inches of the packing yesterday and cut it off and then pull out the rest today. The patient cut 6 inches off yesterday but today was unable to find the end of the packing and is afraid that it is retained within the wound. No fever. No purulent drainage. - Related Data Home Medications Medication Instructions Recorded Confirmed Clopidogrel Bisulfate [Clopidogrel 75 mg PO DAILY 10/18/20 10/18/20 75mg Tab] Empagliflozin [Jardiance] 10 mg PO DAILY 10/18/20 10/18/20 Insulin Detemir [Levemir 50 units SQ HS 10/18/20 10/18/20 100units/mL 3mL flexpen] Insulin Lispro [Insulin Lispro 12 unit SQ TIDWM 10/18/20 10/18/20 Kwikpen U-100] Losartan Potassium [Cozaar 50mg 50 mg PO DAILY 10/18/20 10/18/20 Tablets] Metoprolol Tartrate [Lopressor 12.5 mg PO BID 10/18/20 10/18/20 25mg tablet] Rosuvastatin Calcium 10 mg PO DAILY 10/18/20 10/18/20 Semaglutide [Ozempic] 0.5 mg SQ WEEKLY 10/18/20 10/18/20 Sertraline HCl [Zoloft] 100 mg PO DAILY 10/18/20 10/18/20 Topiramate 100 mg PO DAILY 10/18/20 10/18/20 cloNIDine HCL [cloNIDine 0.2mg 0.2 mg PO HS 10/18/20 10/18/20 Tablet] Previous Rx's Medication Instructions Recorded Colchicine 0.6 mg PO DAILY #30 tab 10/20/20 dexAMETHasone [Dexamethasone] 2 mg PO BID #8 tab 10/20/20 Allergies Allergy/AdvReac Type Severity Reaction Status Date / Time No Known Allergies Allergy Verified 10/18/20 09:03 [facility] History - Hepatitis A Screen Drug use history?: No High risk sexual behaviors?: No History of sexually transmitted infection?: No 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
[2021-08-12 16:50] VITALS: BP 180/65; PULSE 90; RESP 16; TEMP 36.8; O2SAT 97
[2021-08-12 16:58] VITALS: BP 123/74; PULSE 78; RESP 18; TEMP 36.6; O2SAT 98
== END 2021-08-12 16:59 ==
PROVIDERS: Emergency Provider Emergency Medicine; PCP Nurse Practitioner Family
DX: L02.416 Cutaneous abscess of left lower limb (principal); I10 Essential (primary) hypertension; E78.5 Hyperlipidemia, unspecified; E11.9 Type 2 diabetes mellitus without complications; Z79.899 Other long term (current) drug therapy
CPT/HCPCS: 99281

== ENCOUNTER 2021-11-05 21:49 | Emergency (ER) | payer MEDICARE, SELFPAY ==
[2021-11-05 21:51] VITALS: BP 114/63; PULSE 105; RESP 18; TEMP 36.7; O2SAT 96; BMI 32.9
[2021-11-05 21:58] VITALS: BMI 32.9
--- NOTE | 2021-11-05 21:59 | CT_ITS ---
PROCEDURE INFORMATION: Exam: CT Abdomen And Pelvis Without Contrast Exam date and time: 11/05/2021 9:59 PM Age: 66 years old Clinical indication: Prior surgery; Surgery date: <1 month; Surgery type: Vomiting/diarrhea post op 10/26/21. Tumor removal and partial gastrectomy; Additional info: Vomiting an diarrhea post op TECHNIQUE: Imaging protocol: Computed tomography of the abdomen and pelvis without contrast. Radiation optimization: All CT scans at this facility use at least one of these dose optimization techniques: automated exposure control; mA and/or kV adjustment per patient size (includes targeted exams where dose is matched to clinical indication); or iterative reconstruction. COMPARISON: No relevant prior studies available. FINDINGS: Lungs: There are hypoventalitory changes at the lung bases. Liver: Diffuse low-attenuation of the liver. No mass. Gallbladder and bile ducts: Post cholecystectomy change. Pancreas: Parenchymal enhancement is not evaluated without contrast. No ductal dilation. Spleen: Borderline splenomegaly. Adrenal glands: No mass. Kidneys and ureters: Horseshoe kidney. Several left renal hypodensities measuring up to 12 mm which are incompletely characterized without contrast. No hydronephrosis. Stomach and bowel: Diverticulosis coli. No bowel obstruction. Appendix: No evidence of appendicitis. Intraperitoneal space: Ill-defined gas and fluid adjacent to gastrectomy suture line measuring approximately 2.5 x 3.8 cm which may be extraluminal. Vasculature: Limited evaluation without contrast. No abdominal aortic aneurysm. Lymph nodes: No enlarged lymph nodes. Urinary bladder: Gas within the urinary bladder. Reproductive: No acute abnormality. Bones/joints: No acute fracture. Soft tissues: Limited evaluation without contrast. No significant soft tissue swelling. IMPRESSION: 1. Ill-defined gas and fluid adjacent to gastrectomy suture line measuring approximately 2.5 x 3.8 cm which may be extraluminal raising concern for possible dehiscence or abscess formation. This would be better evaluated with CT with IV and oral contrast. 2. Diverticulosis coli without evidence for diverticulitis. 3. Gas within the urinary bladder which is nonspecific. Correlation with history of recent manipulation and/or UA recommended.
[2021-11-05 22:15] LABS: Basophils # 0.2 K/mm3 (0-0.2); Basophils % 0.8 % (0.1-2.0); Eosinophils # 0.1 K/mm3 (0.0-0.4); Eosinophils % 0.6 % (0.1-12.0); Hematocrit 40.6 % (37.0-47.0); Hemoglobin 13.3 g/dL (12.2-16.2); Lymphocytes # 1.2 K/mm3 (0.7-4.5); Mean Corpuscular HGB Conc 32.6 g/dL (31.8-35.4); Mean Corpuscular Hemoglobin 25.9 pg (27.0-31.2); Mean Corpuscular Volume 79.3 fl (81-99); Mean Platelet Volume 8.3 fl (7.4-10.4); Monocytes # 1.1 K/mm3 (0.1-1.0); Monocytes % 5.4 % (1.7-9.3); Neutrophils # 17.5 K/mm3 (1.8-7.8); Neutrophils % 87.2 % (37.0-80.0); Platelet Count 509 K/mm3 (142-424); Red Blood Count 5.12 M/mm3 (4.20-5.40); Red Cell Distribution Width 15.8 % (11.5-17.5)
--- NOTE | 2021-11-05 22:18 | HMH.EDNVD ---
ED Disposition Clinical Impression: TIKI (acute kidney injury) Post-operative complication Qualifiers: Surgical complication system/body Area: digestive system Surgical complication type: unspecified Procedure type: digestive system Qualified Code(s): K91.89 - Other postprocedural complications and disorders of digestive system Disposition: Xfer Short-Term Hosp Condition on Discharge: Good Instructions: DI for Diarrhea and Traveler's Diarrhea -- Adult, DI for Diarrhea and Traveler's Diarrhea -- Child, DI for Nausea -- Adult, DI for Nausea -- Child Referrals: Shivani Nieves APRN [Primary Care Provider] - - Critical Care Critical Care Time: No Attestation: On 11/05/21, the high probability of a clinically significant, sudden or life threatening deterioration of the following system(s) required my full and direct attention, intervention and personal management. The time I documented below is in addition to time spent performing reported procedures but includes the following listed in this critical care notation. Medical Decision Making - Medical Records Medical records reviewed: Yes: I reviewed the patient's medical records. - Daniel Inquiry Pt receiving controlled substance: No Vital Signs: 11/05/21 21:51 Temperature 98.1 F Temperature Source Oral Pulse Rate [Left Radial] 105 H Respiratory Rate 18 Blood Pressure [Right Arm] 114/63 Blood Pressure Mean [Right Arm] 80 02 Sat by Pulse Oximetry 96 Oxygen Delivery Method Room Air - Lab Data Lab results reviewed: Yes: I reviewed the patient's lab results. Lab Results 11/05/21 22:00: WBC 20.0 H, RBC 5.12, Hgb 13.3, Hct 40.6, MCV 79.3 L, MCH 25.9 L, MCHC 32.6, RDW 15.8, Plt Count 509 H, MPV 8.3, Neut % (Auto) 87.2 H, Lymph % (Auto) 6.0 L, [place] % (Auto) 5.4, Eos % (Auto) 0.6, Baso % (Auto) 0.8, Neut # (Auto) 17.5 H, Lymph # (Auto) 1.2, [place] # (Auto) 1.1 H, Eos # (Auto) 0.1, Baso # (Auto) 0.2, Total Counted 100, Neutrophils % (Manual) 87 H, Lymphocytes % (Manual) 13, Platelet Estimate Normal, RBC Morphology Normal, ESR 108 H 11/05/21 22:00: Sodium 132 L, Potassium 3.7, Chloride 99, Carbon Dioxide 22, Anion Gap 14.7, BUN 34 H, Creatinine 2.20 H, Estimated Creat Clear 33, Estimated GFR 22 L, Est GFR ( Amer) 27 L, Glucose 67 L, Calcium 8.4, Total Bilirubin 0.5, AST 20, ALT 15, Alkaline Phosphatase 166 H, C-Reactive Protein 194.2 H, Total Protein 7.6, Albumin 4.2, Globulin 3.4 H, Albumin/Globulin Ratio 1.2, Procalcitonin 0.665 11/05/21 22:00: Lactate 0.9 11/05/21 22:00: Lipase 120 11/05/21 22:23: Urine Color Yellow, Urine Appearance Cloudy, Urine pH 5.0, Ur Specific [place] 1.015, Urine Protein Trace, Urine Glucose (UA) Negative, Urine Ketones Negative, Urine Blood Negative, Urine Nitrate Negative, Urine Bilirubin Negative, Urine Urobilinogen 0.2, Ur Leukocyte Esterase 2+ A, Urine RBC Occasional, Urine WBC 10-20, Ur Squamous Epith Cells 3-5, Urine Bacteria 3+ 11/05/21 23:30: SARS-CoV-2 (PCR) Not detected, Influenza A Untype (PCR) Not detected, Influenza Type B (PCR) Not detected Result diagrams: 11/05/21 22:00 11/05/21 22:00 Orders (Tests/Meds): ED MEDICATIONS Generic Name Dose Route Start Last Admin Trade Name Chavoq PRN Reason Stop Dose Admin Lactated Ringer's 1,000 mls @ 999 mls/hr 11/05/21 22:00 11/05/21 22:14 Lactated Ringer's 1000 Ml Bag IV 11/05/21 23:00 999 mls/hr .Q1H1M NATAN Administration Lactated Ringer's 1,000 mls @ 150 mls/hr 11/05/21 23:45 11/05/21 23:46 Lactated Ringer's 1000 Ml Bag IV 12/05/21 23:44 150 mls/hr .Q6H40M NATAN Administration Piperacillin Sod/Tazobactam 100 mls @ 200 mls/hr 11/06/21 00:30 11/06/21 00:29 Sod 4.5 gm/ Sodium Chloride IV 11/20/21 00:29 200 mls/hr Q6H NATAN Administration Discontinued Medications Generic Name Dose Route Start Last Admin Trade Name Freq PRN Reason Stop Dose Admin Ondansetron HCl 4 mg 11/05/21 21:59 11/05/21 22:14 Ondansetron 4mg/2ml Vial IV 11/05/21 22:00 4 mg
[2021-11-05 22:20] LABS: Chloride 99 mmol/L (98-107); Potassium 3.7 mmoL/L (3.5-5.1); Sodium 132 mmol/L (136-145)
[2021-11-05 22:22] LABS: Alanine Aminotransferase 15 U/L (12-78); Alkaline Phosphatase 166 U/L (38-126); Aspartate Amino Transferase 20 U/L (14-36); Bilirubin,Total 0.5 mg/dl (0.2-1.3); Blood Urea Nitrogen 34 mg/dl (7-17); Creatinine Clearance Estimated 33 mL/min (50-200); Estimated Glomerular Filt Rate 22 ml/min (>60); GFR (African American) 27 ML/MIN (>60)
[2021-11-05 22:23] LABS: Albumin Level 4.2 g/dl (3.5-5.0); Albumin/Globulin Ratio 1.2 (1.1-1.8); Anion Gap 14.7 mEq/L (5-15); Calcium 8.4 mg/dl (8.4-10.2); Carbon Dioxide 22 mmol/L (22.0-30.0); Globulin 3.4 g/dL (1.3-3.2); Glucose 67 mg/dl (74-100); Total Protein,Serum 7.6 g/dl (6.3-8.2)
[2021-11-05 22:24] LABS: Lactic Acid 0.9 mmol/L (0.7-2.1)
[2021-11-05 22:27] LABS: MANUAL DIFFERENTIAL MANUAL DIFFERENTIAL (MANUAL DIFF)
[2021-11-05 22:27] LABS: Microscopic, Urine URINE MICROSCOPIC (MICROSCOPIC)
--- NOTE | 2021-11-05 22:27 | PC.NURSE ---
PC to medical records requesting OP report
[2021-11-05 22:31] LABS: Appearance,Urine CLOUDY (Clear); Bilirubin,Urine Negative (Negative); Blood, Urine Negative (Negative); Color,Urine YELLOW (Yellow); Glucose,Urine (UA) Negative (Negative); Ketones,Urine Negative (Negative); Leukocyte Esterase,Urine 2+ (Negative); Nitrate,Urine Negative (Negative); Protein,Urine TRACE (Negative); Specific Gravity, Urine 1.015 (1.005-1.030); Urobilinogen,Urine 0.2 EU/dl (0.2)
[2021-11-05 22:43] LABS: Lipase 120 U/L (23-300)
[2021-11-05 22:48] LABS: Bacteria,Urine 3+ /lpf; RBC,Urine Occasional #/hpf (0-3)
[2021-11-05 22:48] LABS: C-Reactive Protein 194.2 mg/L (0-4)
[2021-11-05 22:50] LABS: Erythrocyte Sedimentation Rate 108 mm/hr (0-30)
[2021-11-05 22:52] LABS: Lymphocytes % 13 % (10-50); Neutrophils % 87 % (42-76); Total Cells Counted 100
[2021-11-05 22:53] LABS: Platelet Estimate Normal; RBC Morphology Normal
[2021-11-05 23:02] LABS: Procalcitonin 0.665 ng/mL (0.0-2.0)
[2021-11-05 23:37] VITALS: BP 162/63
[2021-11-05 23:39] LABS: Coronavirus 19, PCR Not Detected (NotDetected); Influenza A, PCR Not Detected (NotDetected); Influenza B, PCR Not Detected (NotDetected)
[2021-11-06] VITALS (29 sets, daily range): BP systolic 115–169; BP diastolic 44–98; PULSE 65–88; RESP 16–18; TEMP 36.7; O2SAT 94–100
--- NOTE | 2021-11-06 01:59 | PC.NURSE ---
patient assisted to bathroom
--- NOTE | 2021-11-06 02:52 | PC.NURSE ---
FAMILY REMAINS AT BEDSIDE. PT CONTINUES TO WAIT FOR BED PLACEMENT TO . IV SITES WNL. PT DENIES PAIN/DISCOMFORT AT THIS TIME. NO EPISODES OF EMESIS OR DIARRHEA REPORTED. INCISION SITE WELL APPROXIMATED WITH NO DRAINAGE PRESENT. SIDE RAILS UP X 1. BEDSIDE TABLE WITHIN REACH. CALL LIGHT WITHIN REACH.
--- NOTE | 2021-11-06 02:54 | PC.NURSE ---
phone call to transfer center, they can not give any type of time from for transfer
--- NOTE | 2021-11-06 07:32 | PC.NURSE ---
pt daughter called to check on pt, updated her that we still do not have a bed at . Pt is resting in bed. Family requested I check pt fsbs, result was 62. Notified FARNAZ TRAN, no new orders will continue to monitor. FARNAZ TRAN wants to remain pt NPO except for ice chips and oral swabs to wet her mouth. pt states no needs at this time.
[2021-11-06 07:37] LABS: POC Glucose,Bedside 62 (70-110)
--- NOTE | 2021-11-06 08:12 | PC.NURSE ---
Called [facility] for room update, still no room available.
[2021-11-06 08:33] LABS: Chloride 103 mmol/L (98-107)
[2021-11-06 08:34] LABS: Potassium 3.6 mmoL/L (3.5-5.1); Sodium 137 mmol/L (136-145)
[2021-11-06 08:36] LABS: Alanine Aminotransferase 11 U/L (12-78); Aspartate Amino Transferase 16 U/L (14-36); Blood Urea Nitrogen 31 mg/dl (7-17); Creatinine Clearance Estimated 36 mL/min (50-200); Estimated Glomerular Filt Rate 25 ml/min (>60); GFR (African American) 30 ML/MIN (>60)
[2021-11-06 08:37] LABS: Albumin Level 3.5 g/dl (3.5-5.0); Albumin/Globulin Ratio 1.2 (1.1-1.8); Alkaline Phosphatase 133 U/L (38-126); Anion Gap 14.6 mEq/L (5-15); Bilirubin,Total 0.6 mg/dl (0.2-1.3); Calcium 7.8 mg/dl (8.4-10.2); Carbon Dioxide 23 mmol/L (22.0-30.0); Glucose 68 mg/dl (74-100); Total Protein,Serum 6.5 g/dl (6.3-8.2)
[2021-11-06 08:58] LABS: Basophils % 0.3 % (0.1-2.0); Eosinophils # 0.2 K/mm3 (0.0-0.4); Eosinophils % 1.1 % (0.1-12.0); Hematocrit 35.7 % (37.0-47.0); Lymphocytes # 0.8 K/mm3 (0.7-4.5); Lymphocytes % 5.6 % (10-50); Mean Corpuscular HGB Conc 32.1 g/dL (31.8-35.4); Mean Corpuscular Hemoglobin 25.6 pg (27.0-31.2); Mean Corpuscular Volume 79.5 fl (81-99); Mean Platelet Volume 7.6 fl (7.4-10.4); Monocytes # 0.7 K/mm3 (0.1-1.0); Monocytes % 4.8 % (1.7-9.3); Neutrophils # 12.1 K/mm3 (1.8-7.8); Neutrophils % 88.1 % (37.0-80.0); Platelet Count 316 K/mm3 (142-424); Red Blood Count 4.48 M/mm3 (4.20-5.40); Red Cell Distribution Width 15.8 % (11.5-17.5)
[2021-11-06 09:04] LABS: Hemoglobin 11.4 g/dL (12.2-16.2); White Blood Count 13.5 K/mm3 (4.8-10.8)
[2021-11-06 09:05] LABS: MANUAL DIFFERENTIAL MANUAL DIFFERENTIAL (MANUAL DIFF)
[2021-11-06 09:44] LABS: Eosinophils % 1 % (0-3); Lymphocytes % 5 % (10-50); Monocytes % 4 % (2-9); Neutrophils % 90 % (42-76); Nucleated Red Blood Cells 1; Platelet Estimate Normal; Total Cells Counted 100
--- NOTE | 2021-11-06 09:57 | PC.NURSE ---
[facility] called about patient, [facility] nurse practitioner talking to DR Fu.
--- NOTE | 2021-11-06 10:03 | PC.NURSE ---
Updated pt on plan of care, still waiting on bed at . Informed pt there is no time frame as to when a bed could be available according to . Pt requesting a better bed until transfer. Will contact house to arrange this. House will arrange for bed for pt
--- NOTE | 2021-11-06 10:05 | PC.NURSE ---
Pt c/o nausea, MD aware, med ordered
--- NOTE | 2021-11-06 10:18 | PC.NURSE ---
PT bed change to a floor bed, chair changed out to a recliner, pt up to the bathroom then placed in chair. Blankets given for warmth and pillows placed on bed.
[2021-11-06 13:04] LABS: POC Glucose,Bedside 77 (70-110)
--- NOTE | 2021-11-06 14:24 | PC.NURSE ---
pt went from the chair to the bed after up to the bathroom.
--- NOTE | 2021-11-06 14:27 | PC.NURSE ---
warm blanket placed on pt. door shut per pt request so she can rest
--- NOTE | 2021-11-06 17:41 | PC.NURSE ---
contacted to check on status of bed at this time, spoke with Desi at the transfer center states a room has been assigned to pt but states the room is still being cleaned. I then spoke with Byron one of the bed placement nurses, he wanted updated VS on pt, states they estimate pts room should be ready within an hr, states they will call us as soon as the bed is ready.
--- NOTE | 2021-11-06 17:47 | PC.NURSE ---
entered pt room to update her on bed status, she was sleeping, did not wake pt at this time
--- NOTE | 2021-11-06 19:28 | PC.NURSE ---
PT ALERT AND ORIENTED X 3. PT DENIES PAIN AT THIS TIME AND REPORTS THAT SHE HAS HAD NO VOMITING OR DIARRHEA DURING THE LAST TWELVE HOURS. S1S2 WNL. LUNGS CLEAR. BOWEL SOUNDS POSITIVE X 4 QUADS. INCISION SITE WELL APPROXIMATED WITH NO DRAINAGE PRESENT. PT DENIES TENDERNESS. PT REPORTS THAT SHE IS PASSING FLATUS. PT DENIES PAIN/BURNING OR DISCHARGE WITH URINATION. IV SITE REMAINS IN PLACE WITH; FLUSHES WITHOUT DIFFICULTY AND POSITIVE BLOOD RETURN. PT UPDATED AND IS AWARE THAT SHE HAS A BED AT AND IS CURRENTLY WAITING FOR TO ACCEPT REPORT.
--- NOTE | 2021-11-06 21:00 | PC.NURSE ---
REPORT TO EMS Teresa HERNANDEZ MITERING MACHINE OPERATOR WITH [facility]. REPORT TO NIALL FELIX RN AND PATRICIA BHANDARI RN.
== END 2021-11-06 21:10 | disposition short-term general hospital (02) ==
PROVIDERS: Emergency Provider Emergency Medicine; PCP Nurse Practitioner Family
DX: N17.9 Acute kidney failure, unspecified (principal); K91.89 Other postprocedural complications and disorders of digestive system; I25.10 Atherosclerotic heart disease of native coronary artery without angina pectoris; E11.9 Type 2 diabetes mellitus without complications; I10 Essential (primary) hypertension; E78.5 Hyperlipidemia, unspecified; Z79.899 Other long term (current) drug therapy
CPT/HCPCS: 36415; 74176; 80053; 81001; 82962; 83605; 83690; 84145; 85007; 85025; 85651; 86140; 87086; 87088; 87186; 96365; 96366; 96367; 96375; 99284; C9803; J2405; J2543; U0003; U0005

== ENCOUNTER 2023-02-05 17:50 | Emergency (ER) | payer MEDICARE, SELFPAY ==
[2023-02-05] VITALS (10 sets, daily range): BP systolic 117–183; BP diastolic 66–101; PULSE 64–78; RESP 16–20; TEMP 36.6–36.8; O2SAT 96–98; BMI 33.3; BMI 31.8
--- NOTE | 2023-02-05 17:50 | ECG_ITS ---
APPROVED REPORT Exam: Resting ECG HR:72 bpm ECG Measurements Heart Rate 72 AXES CA 180 P 42 QRSd 114 QRS 21 QT 445 T 83 QTc 469 Conclusion SINUS RHYTHM WITH FREQUENT VENTRICULAR PREMATURE COMPLEXES IN A BIGEMINAL PATTERN MODERATE INTRAVENTRICULAR CONDUCTION DELAY [110+ ms QRS DURATION] NONSPECIFIC T-WAVE ABNORMALITY ABNORMAL RHYTHM ECG UNCONFIRMED REPORT Electronically signed by : Gabe Cespedes MD 02/06/2023 21:00:33
--- NOTE | 2023-02-05 17:55 | XR_ITS ---
PROCEDURE INFORMATION: Exam: XR Chest Exam date and time: 02/05/2023 5:57 PM Age: 67 years old Clinical indication: Sternal or substernal pain; Prior surgery; Surgery date: 3-7 days post-operative; Surgery type: Patient had a heart cath last week with stents placed. Patient HX: Patient is having chest discomfort after having cardiac stents placed last week. ; Additional info: Chest pain TECHNIQUE: Imaging protocol: Radiologic exam of the chest. Views: 1 view. COMPARISON: CT ABDOMEN PELVIS WO CON 11/05/2021 10:34 PM FINDINGS: Lungs: Unremarkable. No consolidation. Pleural spaces: Unremarkable. No pleural effusion. No pneumothorax. Heart/Mediastinum: Unremarkable. No cardiomegaly. Bones/joints: Unremarkable. IMPRESSION: No acute findings.
[2023-02-05 18:15] LABS: Chloride 106 mmol/L (98-107); Potassium 4.2 mmoL/L (3.5-5.1); Sodium 139 mmol/L (136-145)
--- NOTE | 2023-02-05 18:16 | HMH.EDGENADL ---
Discharge Plan Disposition Patient Disposition: Home, Self-Care Prescriptions Prescriptions: No Action losartan 50 MG tablet 50 mg PO DAILY sertraline 100 MG tablet 150 mg PO DAILY topiramate 100 MG tablet 100 mg PO DAILY rosuvastatin 10 MG tablet 10 mg PO DAILY metoprolol tartrate 25 MG tablet 12.5 mg PO BID insulin detemir U-100 100 UNIT/ML insulin pen 66 units SQ HS aspirin 81 MG tablet,delayed release (DR/EC) 81 mg PO DAILY enoxaparin 40 MG/0.4 ML syringe 40 mg SQ DAILY Clinical Impressions Clinical Impression: Chest pain, Coronary artery disease Instructions Patient Instructions: DI for Chest Pain Discharge ED Provider: Reymundo Ling General Adult HPI <Reymundo Ling MD - Last Filed: 02/05/23 19:46> General Chief complaint: Chest Pain Stated complaint: CHEST PAIN Time Seen by Provider: 02/05/23 18:16 History of Present Illness HPI narrative: Patient is a 67-year-old with known coronary disease who went to the [facility] with Dr. Mcallister at the end of last week having multiple stents placed she was on dual antiplatelet therapy took her aspirin and Plavix this morning she states she started having some chest pain after the cath but is been increasingly worsening to the point where is been constant today associated with dizziness and weakness. She states right now she does not really have any significant chest pain which has been intermittently happening the last few days. She states this is a different character of pain than she had prior to her last heart cath. Patient denies any fevers chills cough lower extremity swelling hemoptysis, etc. Related Data Home Medications Medication Instructions Recorded Confirmed losartan 50 mg tablet 50 mg PO DAILY Hypertension 10/18/20 11/06/21 metoprolol tartrate 25 mg tablet 12.5 mg PO BID Hypertension 10/18/20 11/06/21 rosuvastatin 10 mg tablet 10 mg PO DAILY Cholesterol 10/18/20 11/06/21 sertraline 100 mg tablet 150 mg PO DAILY Depression 10/18/20 11/06/21 topiramate 100 mg tablet 100 mg PO DAILY Pain 10/18/20 11/06/21 aspirin 81 mg tablet,delayed 81 mg PO DAILY heart health 11/06/21 11/06/21 release enoxaparin 40 mg/0.4 mL 40 mg SQ DAILY Blood thinner 11/06/21 11/06/21 subcutaneous syringe insulin detemir U-100 100 unit/mL 66 units SQ HS Diabetes 11/06/21 11/06/21 (3 mL) subcutaneous pen Allergies Allergy/AdvReac Type Severity Reaction Status Date / Time No Known Allergies Allergy Verified 10/18/20 09:03 PFSH <Reymundo Ling MD - Last Filed: 02/05/23 19:46> [facility] Disclaimer: The information contained in this section may have been updated after the patient was seen, as this information can be updated by other users. Social History Smoking Status: Never smoker alcohol intake: never current occupational status: employed Travel in the last 8 weeks: None household members: children housing: house <Reymundo Ling MD - Last Filed: 02/05/23 19:46> ROS Obtained: Yes All systems reviewed & no additional complaints except as documented Physical Exam <Reymundo Ling MD - Last Filed: 02/05/23 19:46> General General appearance: alert Respiratory Respiratory exam: Present normal lung sounds bilaterally; Absent wheezes Cardiovascular Cardiovascular exam: Present regular rate; Absent tachycardia Neurological Exam Neurological exam: Present alert and oriented X3 Medical Decision Making <Reymundo Ling MD - Last Filed: 02/05/23 19:46> [facility] Inquiry Pt receiving controlled substance: No Vital Signs: 02/05/23 17:54 02/05/23 19:42 02/05/23 20:01 Temperature 97.8 F Temperature Source Oral Pulse Rate 66 65 Pulse Rate [Left] 69 Respiratory Rate 19 18 20 Blood Pressure 149/66 H 149/66 H Blood Pressure [Right Arm] 183/75 H Blood Pressure Mean 93 96 Blood Pressure Mean [Right Arm] 111 02 Sat by Pulse Oximetry 97 97 97 02/05/23 20:30 02/05/23 21:00
[2023-02-05 18:18] LABS: Anion Gap 14.2 mEq/L (5-15); Basophils % 0.5 % (0.1-2.0); Blood Urea Nitrogen 33 mg/dl (7-17); Carbon Dioxide 23 mmol/L (22.0-30.0); Creatinine Clearance Estimated 43 mL/min (50-200); Eosinophils # 0.2 K/mm3 (0.0-0.4); Eosinophils % 2.9 % (0.1-12.0); Estimated Glomerular Filt Rate 32 ml/min (>60); GFR (African American) 39 ML/MIN (>60); Hematocrit 44.3 % (37.0-47.0); Hemoglobin 14.5 g/dL (12.2-16.2); Lymphocytes # 1.1 K/mm3 (0.7-4.5); Lymphocytes % 17.9 % (10-50); Mean Corpuscular HGB Conc 32.6 g/dL (31.8-35.4); Mean Corpuscular Hemoglobin 26.9 pg (27.0-31.2); Mean Corpuscular Volume 82.4 fl (81-99); Mean Platelet Volume 7.6 fl (7.4-10.4); Monocytes # 0.4 K/mm3 (0.1-1.0); Monocytes % 6.1 % (1.7-9.3); Neutrophils # 4.4 K/mm3 (1.8-7.8); Neutrophils % 72.5 % (37.0-80.0); Platelet Count 153 K/mm3 (142-424); Red Blood Count 5.38 M/mm3 (4.20-5.40); Red Cell Distribution Width 15.1 % (11.5-17.5); White Blood Count 6.1 K/mm3 (4.8-10.8)
[2023-02-05 18:19] LABS: Calcium 9.1 mg/dl (8.4-10.2); Glucose 195 mg/dl (74-100)
[2023-02-05 18:31] LABS: Troponin I 0.06 ng/ml (0.00-0.034)
[2023-02-05 21:25] LABS: Troponin I 0.06 ng/ml (0.00-0.034)
--- NOTE | 2023-02-05 22:23 | PC.NURSE ---
spoke with operations research director pharmacyPurnima.
--- NOTE | 2023-02-05 22:31 | PC.NURSE ---
call placed with [facility], waiting on dr osman to call back.
--- NOTE | 2023-02-05 22:33 | PC.NURSE ---
call returned from [facility] solution architect cardio at [facility]
--- NOTE | 2023-02-05 22:44 | PC.NURSE ---
house at bedside discussing POC WITH PATIENT and family member.
--- NOTE | 2023-02-05 22:56 | PC.NURSE ---
attempted to update patient's medication list for accuracy, daughter refused stating why does it matter now . Reminded her that I simply wanted her chart to be accurate, and she continued to refuse. Nitro patch was removed per LUIZA Turner.
== END 2023-02-05 23:03 | disposition home or self-care (01) ==
PROVIDERS: Emergency Provider Student in an Organized Health Care Education/Training Program; PCP Nurse Practitioner Family
DX: R07.9 Chest pain, unspecified (principal); I25.10 Atherosclerotic heart disease of native coronary artery without angina pectoris; R42 Dizziness and giddiness; R53.1 Weakness; I49.3 Ventricular premature depolarization
CPT/HCPCS: 71045; 80048; 84484; 85025; 90471; 93005; 99285